=== PATIENT | male | born 1975 | race Caucasian/White ===

== ENCOUNTER 2021-08-25 17:05 | Inpatient (IN) | payer BC ==
[~2021-08-25] VITALS: Ht 172.7 cm; Wt 91.0 kg
[2021-08-25] MEDS ORDERED: morphine 10mg/ml inj. IM ONE (17:25)
[2021-08-25] MEDS ORDERED: ondansetron 4mg rapidly disintigrating tab PO ONE (17:25)
[2021-08-25] MEDS ORDERED: normal saline 1000ml 1,000 ML IV ONE ×2 (18:35→19:25)
[2021-08-25] MEDS ORDERED: morphine 4 MG/ML inj SYRINge IV ONE ×2 (18:35→19:25)
[2021-08-25 19:04] LABS: BASOPHILS % (AUTO) 0.1 % (0-1); EOSINOPHILS % (AUTO) 0.1 % (0-6); HEMATOCRIT 45.2 % (42.0-52.0); HEMOGLOBIN 15.8 g/dl (14.0-17.9); LYMPHOCYTES # (AUTO) 0.6 X10'3 (1.1-4.8); LYMPHOCYTES % (AUTO) 4.1 % (21-51); MEAN CORPUSCULAR HEMOGLOBIN 30.4 PG (27.0-31.0); MEAN CORPUSCULAR HGB CONC 34.9 g/dL (33.0-36.5); MEAN CORPUSCULAR VOLUME 87.2 FL (78-98); MEAN PLATELET VOLUME 6.1 FL (7.4-10.4); MONOCYTES # (AUTO) 0.8 X10'3 (0-0.9); MONOCYTES % (AUTO) 5.4 % (2-12); NEUTROPHILS # (AUTO) 13.2 X10'3 (1.8-7.7); NEUTROPHILS % (AUTO) 90.3 % (42-75); PLATELET COUNT 360 X10'3 (140-440); RED BLOOD COUNT 5.18 X10'6 (4.70-6.10); RED CELL DISTRIBUTION WIDTH 13.6 % (11.5-14.5); WHITE BLOOD COUNT 14.6 X10'3 (4.5-11.0)
[2021-08-25 19:21] LABS: ALANINE AMINOTRANSFERASE 37 U/L (12-78); ALBUMIN 4.3 G/DL (3.4-5.0); ALBUMIN/GLOBULIN RATIO 1.2 (1.1-1.5); ALKALINE PHOSPHATASE 61 IU/L (46-116); ANION GAP 12 (8-16); ASPARTATE AMINO TRANSFERASE 25 U/L (10-37); BILIRUBIN,TOTAL 0.6 MG/DL (0.1-1.0); BLOOD UREA NITROGEN 23 MG/DL (7-18); BUN/CREATININE RATIO 24.7 (5.4-32.0); CALCIUM 8.7 MG/DL (8.5-10.1); CHLORIDE 101 MMOL/L (99-107); CREATININE 0.93 MG/DL (0.60-1.10); GLUCOSE 115 MG/DL (70-104); POTASSIUM 3.4 MMOL/L (3.5-5.1); SODIUM 140 MMOL/L (135-145); TOTAL PROTEIN 7.8 G/DL (6.4-8.2); eGFR 87 ML/MIN
[2021-08-25] MEDS ORDERED: ondansetron/PF 4mg/2ml inj IV ONE (19:25)
[2021-08-25 19:46] LABS: APTT 25 SECONDS (22-32)
[2021-08-25] MEDS ORDERED: magnesium hydroxide 30ml (MOM) UD suspension PO PRN (19:50)
[2021-08-25] MEDS ORDERED: ondansetron/PF 4mg/2ml inj IV PRN (19:50)
[2021-08-25] MEDS ORDERED: diphenhydrAMINE 50 mg/ml inj IV PRN (19:50)
[2021-08-25] MEDS ORDERED: bisacodyl 10mg suppository rectal RC PRN (19:50)
[2021-08-25] MEDS ORDERED: diphenhydrAMINE 25mg capsule PO PRN (19:50)
[2021-08-25] MEDS ORDERED: morphine 2 MG/ML inj. syringe IV PRN ×2 (19:50)
[2021-08-25] MEDS ORDERED: acetaminophen 650mg rectal suppository RC PRN (19:50)
[2021-08-25] MEDS ORDERED: mag hydrox/Alum hydrox/simeth 30ml oral suspension PO PRN (19:50)
[2021-08-25] MEDS ORDERED: acetaminophen 325mg tablet PO PRN (19:50)
[2021-08-25] MEDS ORDERED: ondansetron 4mg rapidly disintigrating tab PO PRN (19:50)
[2021-08-25] MEDS ORDERED: HYDROcodone/acetaminophen 5mg/325mg tablet PO PRN (19:50)
[2021-08-25] MEDS ORDERED: magnesium Cl slow-release 64mg tablet PO PRN (19:55)
[2021-08-25] MEDS ORDERED: magnesium 4gm in 100ml NS 100 ML IV PRN (19:55)
[2021-08-25] MEDS ORDERED: magnesium 2GM in 50ml NS 50 ML IV PRN (19:55)
[2021-08-25] MEDS ORDERED: potassium CL 10mEq/100ml bag 100 ML IV PRN (19:55)
[2021-08-25] MEDS: K and/or MAG REPLACEMENT MC SCH (20:00)
[2021-08-25 20:15] LABS: HEMOGLOBIN A1C 5.4 % (4.5-6.2)
[2021-08-25] MEDS ORDERED: temazepam 15mg capsule PO PRN (21:00)
[2021-08-25] MEDS: heparin, porcine 5000 units/ml vial SQ SCH (21:24)
[2021-08-25] MEDS: docusate sod 100mg capsule PO SCH (21:24)
[2021-08-25] MEDS: potassium Cl 20 mEq SR tablet PO PRN (21:25)
[2021-08-25] MEDS: dextrose 5%-1/2 normal saline 1,000 ML IV SCH (21:25)
[2021-08-25 23:05] VITALS: BP 165/97
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
[2021-08-25] MEDS: HYDROmorphone inj. 0.5 MG/0.5 ML DISP.SYRIN IV PRN (23:25)
[2021-08-26] VITALS (19 sets, daily range): BP systolic 127–160; BP diastolic 70–99
[2021-08-26] MEDS: HYDROcodone/acetaminophen 10/325mg tab PO PRN ×2 (01:24→05:26)
[2021-08-26] MEDS: potassium Cl 20 mEq SR tablet PO PRN (01:24)
[2021-08-26] MEDS ORDERED: NO HOME MEDS (03:26)
[2021-08-26] MEDS: HYDROmorphone inj. 0.5 MG/0.5 ML DISP.SYRIN IV PRN ×2 (03:26→09:22)
[2021-08-26] MEDS: dextrose 5%-1/2 normal saline 1,000 ML IV SCH ×3 (05:22→20:42)
--- NOTE | 2021-08-26 06:15 | NUR ---
Patient in room [facility]. I have received report from Le Lujan RN and had the opportunity to ask questions and assume patient care.
--- NOTE | 2021-08-26 06:30 | NUR ---
Problems reprioritized. Patient report given, questions answered & plan of care reviewed with LIAN GUERRERO.
[2021-08-26 06:42] LABS: BASOPHILS % (AUTO) 0.2 % (0-1); EOSINOPHILS % (AUTO) 0.4 % (0-6); HEMATOCRIT 42.2 % (42.0-52.0); HEMOGLOBIN 14.9 g/dl (14.0-17.9); LYMPHOCYTES # (AUTO) 0.9 X10'3 (1.1-4.8); LYMPHOCYTES % (AUTO) 11.7 % (21-51); MEAN CORPUSCULAR HEMOGLOBIN 31.2 PG (27.0-31.0); MEAN CORPUSCULAR HGB CONC 35.4 g/dL (33.0-36.5); MEAN PLATELET VOLUME 6.2 FL (7.4-10.4); MONOCYTES # (AUTO) 0.5 X10'3 (0-0.9); MONOCYTES % (AUTO) 6.1 % (2-12); NEUTROPHILS # (AUTO) 6.2 X10'3 (1.8-7.7); NEUTROPHILS % (AUTO) 81.6 % (42-75); PLATELET COUNT 333 X10'3 (140-440); RED BLOOD COUNT 4.79 X10'6 (4.70-6.10); RED CELL DISTRIBUTION WIDTH 13.8 % (11.5-14.5); WHITE BLOOD COUNT 7.6 X10'3 (4.5-11.0)
[2021-08-26 07:14] LABS: ALANINE AMINOTRANSFERASE 33 U/L (12-78); ALBUMIN 3.7 G/DL (3.4-5.0); ALBUMIN/GLOBULIN RATIO 1.1 (1.1-1.5); ALKALINE PHOSPHATASE 58 IU/L (46-116); ANION GAP 12 (8-16); ASPARTATE AMINO TRANSFERASE 16 U/L (10-37); BILIRUBIN,TOTAL 1.1 MG/DL (0.1-1.0); BLOOD UREA NITROGEN 17 MG/DL (7-18); BUN/CREATININE RATIO 17.2 (5.4-32.0); CALCIUM 8.4 MG/DL (8.5-10.1); CHLORIDE 102 MMOL/L (99-107); CREATININE 0.99 MG/DL (0.60-1.10); GLUCOSE 124 MG/DL (70-104); MAGNESIUM 2.4 MG/DL (1.5-2.4); POTASSIUM 3.9 MMOL/L (3.5-5.1); SODIUM 140 MMOL/L (135-145); TOTAL CARBON DIOXIDE 25.9 MMOL/L (24-32); TOTAL PROTEIN 7.2 G/DL (6.4-8.2); eGFR 81 ML/MIN
[2021-08-26] MEDS: heparin, porcine 5000 units/ml vial SQ SCH ×2 (07:34→20:42)
[2021-08-26] MEDS: pantoprazole 40MG/NS 100ML BAG 100 ML IV SCH (07:39)
[2021-08-26] MEDS: docusate sod 100mg capsule PO SCH ×2 (07:40→20:42)
[2021-08-26] MEDS: K and/or MAG REPLACEMENT MC SCH ×2 (08:00→20:00)
[2021-08-26] MEDS ORDERED: pneumococcal 23-VAL P-sac vacc 25 mcg/0.5ml vial IMVAC ONE (10:00)
[2021-08-26] MEDS ORDERED: oxyCODONE/APAP 10/325mg tablet PO PRN (10:55)
[2021-08-26] MEDS: oxyCODONE/APAP 10/325mg tablet PO PRN ×2 (12:02→22:43)
--- NOTE | 2021-08-26 14:49 | NUR ---
Problems reprioritized. Patient report given, questions answered & plan of care reviewed with Brandon GUERREROorgan recovery coordinator.
[2021-08-26] MEDS ORDERED: BUPIVAcaine 0.5% inj/PF 30 ML ONE (14:52)
--- NOTE | 2021-08-26 15:30 | NUR ---
Charting by Lorenza COSTA reviewed by Jacque Keith RN
[2021-08-26] MEDS ORDERED: morphine 2 MG/ML inj. syringe IV PRN (15:35)
[2021-08-26] MEDS ORDERED: ketorolac trometh. 30mg/ml inj. IV ONE (15:35)
[2021-08-26] MEDS ORDERED: morphine 4 MG/ML inj SYRINge IV PRN (15:35)
[2021-08-26] MEDS ORDERED: ondansetron/PF 4mg/2ml inj IV PRN (15:35)
[2021-08-26] MEDS ORDERED: proCHLORperazine 10 MG/2 ml inj IV PRN (15:35)
[2021-08-26] MEDS ORDERED: hydrALAZINE 20mg/ml inj. IV PRN (15:35)
[2021-08-26] MEDS ORDERED: ringers solution, lacted 1,000 ML IV SCH (15:35)
[2021-08-26] MEDS ORDERED: acetaminophen 1,000mg/100ml IV 100 ML IV PRN (15:35)
[2021-08-26] MEDS ORDERED: labetalol 20mg/4ml (5mg/ml) syringe IV PRN (15:35)
[2021-08-26] MEDS ORDERED: meperidine/PF 25mg/ml syringe IV PRN ×3 (15:35)
[2021-08-26] MEDS ORDERED: midazolam 1 mg/ML 2ml injection ONE (15:59)
[2021-08-26] MEDS ORDERED: FENTANYL CITRATE/PF 50 MCG/1 ML VIAL ONE (16:19)
[2021-08-26] MEDS ORDERED: propofol inj 20 ML IV ONE (16:20)
[2021-08-26] MEDS ORDERED: dexamethasone sod phosphate 4mg/ml inj. ONE (16:20)
[2021-08-26] MEDS ORDERED: ceFAZolin 1000mg inj ONE ×2 (16:20)
[2021-08-26] MEDS ORDERED: ondansetron/PF 4mg/2ml inj ONE (16:20)
[2021-08-26] MEDS ORDERED: LIDOcaine 2% (20mg/ml) 5ml vial ONE (16:20)
[2021-08-26] MEDS ORDERED: vancomycin 1,000mg inj ONE (17:12)
[2021-08-26] MEDS ORDERED: morphine 4 MG/ML inj SYRINge ONE ×2 (17:26→18:39)
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
--- NOTE | 2021-08-26 18:04 | NUR ---
Patient in room [facility]. I have received report from Martina GUERREROdonkey doctor and had the opportunity to ask questions and assume patient care.
--- NOTE | 2021-08-26 18:15 | NUR ---
Problems reprioritized. Patient report given, questions answered & plan of care reviewed with Le Lujan RN.
--- NOTE | 2021-08-26 18:30 | NUR ---
I have received report from LIAN GUERRERO and had the opportunity to ask questions and assume patient care. PATIENT STILL IN RECOVERY ROOM AT THIS TIME.
--- NOTE | 2021-08-26 18:42 | NUR ---
4 MG MORPHINE GIVEN PER MD ORDERS THAT WE PREMATURELY REMOVED FROM MEDICATION LIST BY RX. Addendum: 08/26/21 at 1843 by Martina Tabares RN Amended: Links added.
--- NOTE | 2021-08-26 19:03 | NUR ---
Report called to receiving nurse. Transferred via BED, NO Belongings. RECEIVING RN AT [facility] TO RECEIVE PT. BLL, CALL LIGHT GIVEN, SIDE RAILS UP X 2. Special Issues communicated to receiving nurse. YES. Addendum: 08/26/21 at 1911 by Martina Tabares RN Amended: Links added.
--- NOTE | 2021-08-26 19:05 | NUR ---
PATIENT BACK TO ROOM 359A FROM RECOVERY ROOM AFTER ORIF WAS DONE BY DR. CORTES. PLACED COMFORTABLE IN BED. VITAL SIGNS MONITORED.
[2021-08-27] VITALS: BP 143/87
[2021-08-27] MEDS: ceFAZolin/D5W- 1GM premix 50 ML IV SCH ×2 (00:30→09:15)
[2021-08-27] MEDS: dextrose 5%-1/2 normal saline 1,000 ML IV SCH (05:44)
[2021-08-27 06:14] LABS: BASOPHILS % (AUTO) 0 % (0-1); EOSINOPHILS % (AUTO) 0 % (0-6); HEMATOCRIT 41.2 % (42.0-52.0); HEMOGLOBIN 14.5 g/dl (14.0-17.9); LYMPHOCYTES # (AUTO) 0.5 X10'3 (1.1-4.8); LYMPHOCYTES % (AUTO) 5.8 % (21-51); MEAN CORPUSCULAR HEMOGLOBIN 31.4 PG (27.0-31.0); MEAN CORPUSCULAR HGB CONC 35.2 g/dL (33.0-36.5); MEAN CORPUSCULAR VOLUME 89.1 FL (78-98); MEAN PLATELET VOLUME 6.4 FL (7.4-10.4); MONOCYTES # (AUTO) 0.4 X10'3 (0-0.9); MONOCYTES % (AUTO) 4.4 % (2-12); NEUTROPHILS # (AUTO) 7.6 X10'3 (1.8-7.7); NEUTROPHILS % (AUTO) 89.8 % (42-75); PLATELET COUNT 325 X10'3 (140-440); RED BLOOD COUNT 4.62 X10'6 (4.70-6.10); RED CELL DISTRIBUTION WIDTH 13.3 % (11.5-14.5); WHITE BLOOD COUNT 8.5 X10'3 (4.5-11.0)
--- NOTE | 2021-08-27 06:25 | NUR ---
Problems reprioritized. Patient report given, questions answered & plan of care reviewed with LIAN GUERRERO.
[2021-08-27 06:38] LABS: ALANINE AMINOTRANSFERASE 27 U/L (12-78); ALBUMIN 3.2 G/DL (3.4-5.0); ALBUMIN/GLOBULIN RATIO 0.7 (1.1-1.5); ALKALINE PHOSPHATASE 53 IU/L (46-116); ANION GAP 10 (8-16); ASPARTATE AMINO TRANSFERASE 24 U/L (10-37); BILIRUBIN,TOTAL 0.8 MG/DL (0.1-1.0); BLOOD UREA NITROGEN 17 MG/DL (7-18); BUN/CREATININE RATIO 16.3 (5.4-32.0); CALCIUM 8.6 MG/DL (8.5-10.1); CHLORIDE 102 MMOL/L (99-107); CREATININE 1.04 MG/DL (0.60-1.10); GLUCOSE 136 MG/DL (70-104); POTASSIUM 4.3 MMOL/L (3.5-5.1); SODIUM 139 MMOL/L (135-145); TOTAL CARBON DIOXIDE 27.2 MMOL/L (24-32); TOTAL PROTEIN 7.7 G/DL (6.4-8.2); eGFR 77 ML/MIN
--- NOTE | 2021-08-27 06:44 | NUR ---
Patient in room [facility]. I have received report from Le Lujan Rn and had the opportunity to ask questions and assume patient care.
[2021-08-27 07:18] LABS: MAGNESIUM 2.3 MG/DL (1.5-2.4)
[2021-08-27 07:57] VITALS: BP 111/68
[2021-08-27] MEDS: K and/or MAG REPLACEMENT MC SCH ×2 (08:00→19:59)
[2021-08-27] MEDS: docusate sod 100mg capsule PO SCH ×2 (08:13→19:55)
[2021-08-27] MEDS: heparin, porcine 5000 units/ml vial SQ SCH (08:13)
[2021-08-27] MEDS: pantoprazole 40MG/NS 100ML BAG 100 ML IV SCH (08:50)
[2021-08-27] MEDS: oxyCODONE/APAP 10/325mg tablet PO PRN (10:01)
[2021-08-27] MEDS: acetaminophen 325mg tablet PO PRN (14:07)
--- NOTE | 2021-08-27 15:08 | NUR ---
PAGER ID: [phone] MESSAGE: Tucker Bundy#[id number]- Pt would like different pain meds. Percocet works well but wants to get them q4hr instead. can we give a 1x dose of Toradol 15mg? please and thank you. Irlanda [phone]
[2021-08-27] MEDS ORDERED: oxyCODONE/APAP 10/325mg tablet PO PRN (16:40)
[2021-08-27] MEDS ORDERED: ketorolac tromethamine 15mg/ml inj. IM ONE (17:15)
[2021-08-27] MEDS ORDERED: ketorolac trometh. 30mg/ml inj. IV ONE (17:25)
[2021-08-27 18:00] VITALS: BP 123/71
--- NOTE | 2021-08-27 18:16 | NUR ---
Problems reprioritized. Patient report given, questions answered & plan of care reviewed with Jone GUERRERO.
--- NOTE | 2021-08-27 18:39 | NUR ---
Patient in room [facility]. I have received report from Irlanda GUERRERO ,and had the opportunity to ask questions and assume patient care.
[2021-08-27] MEDS: ketorolac trometh. 30mg/ml inj. IV SCH ×2 (18:46→21:28)
--- NOTE | 2021-08-27 19:20 | NUR ---
Received report from YOLANDA Fournier
[2021-08-27] MEDS: enoxaparin 40mg/0.4ml syringe SUBCUT SCH (19:55)
[2021-08-28] VITALS: BP 116/77
[2021-08-28] MEDS: ketorolac trometh. 30mg/ml inj. IV SCH ×4 (02:47→20:05)
--- NOTE | 2021-08-28 06:32 | NUR ---
Problems reprioritized. Patient report given, questions answered & plan of care reviewed with Amanda flood.
--- NOTE | 2021-08-28 06:38 | NUR ---
I agree with Jeri ROY students documentation, assessments and report given to on coming nurse
[2021-08-28 06:43] LABS: BASOPHILS % (AUTO) 0.3 % (0-1); EOSINOPHILS % (AUTO) 0.8 % (0-6); HEMATOCRIT 39.5 % (42.0-52.0); HEMOGLOBIN 13.7 g/dl (14.0-17.9); LYMPHOCYTES # (AUTO) 1.1 X10'3 (1.1-4.8); LYMPHOCYTES % (AUTO) 19.1 % (21-51); MEAN CORPUSCULAR HEMOGLOBIN 30.9 PG (27.0-31.0); MEAN CORPUSCULAR HGB CONC 34.8 g/dL (33.0-36.5); MEAN CORPUSCULAR VOLUME 88.7 FL (78-98); MEAN PLATELET VOLUME 6.4 FL (7.4-10.4); MONOCYTES # (AUTO) 0.4 X10'3 (0-0.9); MONOCYTES % (AUTO) 6.6 % (2-12); NEUTROPHILS # (AUTO) 4.4 X10'3 (1.8-7.7); NEUTROPHILS % (AUTO) 73.2 % (42-75); PLATELET COUNT 302 X10'3 (140-440); RED BLOOD COUNT 4.45 X10'6 (4.70-6.10); RED CELL DISTRIBUTION WIDTH 13.7 % (11.5-14.5)
[2021-08-28 06:46] LABS: ALANINE AMINOTRANSFERASE 25 U/L (12-78); ALBUMIN 3.1 G/DL (3.4-5.0); ALBUMIN/GLOBULIN RATIO 0.9 (1.1-1.5); ALKALINE PHOSPHATASE 48 IU/L (46-116); ANION GAP 12 (8-16); ASPARTATE AMINO TRANSFERASE 31 U/L (10-37); BILIRUBIN,TOTAL 0.6 MG/DL (0.1-1.0); BLOOD UREA NITROGEN 22 MG/DL (7-18); BUN/CREATININE RATIO 21.8 (5.4-32.0); CALCIUM 8.5 MG/DL (8.5-10.1); CHLORIDE 104 MMOL/L (99-107); CREATININE 1.01 MG/DL (0.60-1.10); GLUCOSE 102 MG/DL (70-104); MAGNESIUM 2.3 MG/DL (1.5-2.4); POTASSIUM 3.9 MMOL/L (3.5-5.1); SODIUM 144 MMOL/L (135-145); TOTAL CARBON DIOXIDE 28.5 MMOL/L (24-32); TOTAL PROTEIN 6.7 G/DL (6.4-8.2); eGFR 80 ML/MIN
[2021-08-28 07:00] VITALS: BP 124/78
[2021-08-28] MEDS: K and/or MAG REPLACEMENT MC SCH ×2 (08:00→18:30)
--- NOTE | 2021-08-28 08:09 | NUR ---
Patient in room [facility]. I have received report from Jose Manuel GUERRERO and had the opportunity to ask questions and assume patient care.
[2021-08-28] MEDS: docusate sod 100mg capsule PO SCH ×2 (08:36→20:04)
[2021-08-28] MEDS: pantoprazole 40MG/NS 100ML BAG 100 ML IV SCH (08:38)
[2021-08-28 11:00] VITALS: BP 136/83
[2021-08-28] MEDS ORDERED: pneumococcal 23-VAL P-sac vacc 25 mcg/0.5ml vial IMVAC ONE (11:00)
[2021-08-28] MEDS: oxyCODONE/APAP 10/325mg tablet PO PRN ×2 (11:19→21:27)
--- NOTE | 2021-08-28 17:54 | NUR ---
Student documentation: I have reviewed and all interventions, assessments performed and documented by Elisabet ROMERO. Student Medication Administration: For all medication-pass' in the time frame of 0395-5385, all medication were reviewed, dispensed, administered and documented per hospital policy by Elisabet ROMERO.
--- NOTE | 2021-08-28 18:07 | NUR ---
Problems reprioritized. Patient report given, questions answered & plan of care reviewed with Geovanna GUERRERO.
[2021-08-28 20:00] VITALS: BP 137/78
[2021-08-28] MEDS: enoxaparin 40mg/0.4ml syringe SUBCUT SCH (20:05)
[2021-08-29] VITALS: BP 124/69
[2021-08-29] MEDS: ketorolac trometh. 30mg/ml inj. IV SCH ×4 (02:34→20:15)
[2021-08-29] MEDS: oxyCODONE/APAP 10/325mg tablet PO PRN ×2 (05:51→22:47)
--- NOTE | 2021-08-29 06:21 | NUR ---
Problems reprioritized. Patient report given, questions answered & plan of care reviewed with YOLANDA East.
[2021-08-29 06:29] LABS: BASOPHILS % (AUTO) 0.8 % (0-1); EOSINOPHILS # (AUTO) 0.1 X10'3 (0-0.9); EOSINOPHILS % (AUTO) 2.4 % (0-6); HEMATOCRIT 40.5 % (42.0-52.0); HEMOGLOBIN 14.3 g/dl (14.0-17.9); LYMPHOCYTES # (AUTO) 1.3 X10'3 (1.1-4.8); LYMPHOCYTES % (AUTO) 26.7 % (21-51); MEAN CORPUSCULAR HEMOGLOBIN 31.3 PG (27.0-31.0); MEAN CORPUSCULAR HGB CONC 35.2 g/dL (33.0-36.5); MEAN CORPUSCULAR VOLUME 88.9 FL (78-98); MEAN PLATELET VOLUME 6.4 FL (7.4-10.4); MONOCYTES # (AUTO) 0.3 X10'3 (0-0.9); MONOCYTES % (AUTO) 6.4 % (2-12); NEUTROPHILS # (AUTO) 3.1 X10'3 (1.8-7.7); NEUTROPHILS % (AUTO) 63.7 % (42-75); PLATELET COUNT 304 X10'3 (140-440); RED BLOOD COUNT 4.56 X10'6 (4.70-6.10); RED CELL DISTRIBUTION WIDTH 13.4 % (11.5-14.5); WHITE BLOOD COUNT 4.8 X10'3 (4.5-11.0)
[2021-08-29 06:57] LABS: ALANINE AMINOTRANSFERASE 29 U/L (12-78); ALBUMIN 3.1 G/DL (3.4-5.0); ALBUMIN/GLOBULIN RATIO 0.8 (1.1-1.5); ALKALINE PHOSPHATASE 50 IU/L (46-116); ANION GAP 11 (8-16); ASPARTATE AMINO TRANSFERASE 31 U/L (10-37); BILIRUBIN,TOTAL 0.6 MG/DL (0.1-1.0); BLOOD UREA NITROGEN 22 MG/DL (7-18); BUN/CREATININE RATIO 23.4 (5.4-32.0); CHLORIDE 105 MMOL/L (99-107); CREATININE 0.94 MG/DL (0.60-1.10); GLUCOSE 103 MG/DL (70-104); MAGNESIUM 2.3 MG/DL (1.5-2.4); POTASSIUM 4.1 MMOL/L (3.5-5.1); SODIUM 142 MMOL/L (135-145); TOTAL CARBON DIOXIDE 26.4 MMOL/L (24-32); TOTAL PROTEIN 6.9 G/DL (6.4-8.2); eGFR 86 ML/MIN
[2021-08-29 07:00] VITALS: BP 117/81
[2021-08-29] MEDS: K and/or MAG REPLACEMENT MC SCH ×2 (07:47→20:00)
[2021-08-29] MEDS: pantoprazole 40MG/NS 100ML BAG 100 ML IV SCH (08:04)
[2021-08-29] MEDS: docusate sod 100mg capsule PO SCH ×2 (08:05→20:15)
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
[2021-08-29 11:00] VITALS: BP 130/85
[2021-08-29 18:00] VITALS: BP 134/91
[2021-08-29] MEDS: enoxaparin 40mg/0.4ml syringe SUBCUT SCH (20:16)
[2021-08-30] VITALS: BP 114/76
[2021-08-30] MEDS: ketorolac trometh. 30mg/ml inj. IV SCH ×2 (01:53→07:23)
[2021-08-30 05:31] LABS: BASOPHILS % (AUTO) 0.7 % (0-1); EOSINOPHILS # (AUTO) 0.1 X10'3 (0-0.9); HEMATOCRIT 41.8 % (42.0-52.0); HEMOGLOBIN 14.5 g/dl (14.0-17.9); LYMPHOCYTES # (AUTO) 1.3 X10'3 (1.1-4.8); LYMPHOCYTES % (AUTO) 27.9 % (21-51); MEAN CORPUSCULAR HEMOGLOBIN 30.5 PG (27.0-31.0); MEAN CORPUSCULAR HGB CONC 34.6 g/dL (33.0-36.5); MEAN PLATELET VOLUME 6.1 FL (7.4-10.4); MONOCYTES # (AUTO) 0.3 X10'3 (0-0.9); MONOCYTES % (AUTO) 6.4 % (2-12); NEUTROPHILS # (AUTO) 2.9 X10'3 (1.8-7.7); PLATELET COUNT 346 X10'3 (140-440); RED BLOOD COUNT 4.75 X10'6 (4.70-6.10); RED CELL DISTRIBUTION WIDTH 13.5 % (11.5-14.5); WHITE BLOOD COUNT 4.7 X10'3 (4.5-11.0)
[2021-08-30 05:52] LABS: ALANINE AMINOTRANSFERASE 35 U/L (12-78); ALBUMIN 3.2 G/DL (3.4-5.0); ALBUMIN/GLOBULIN RATIO 0.9 (1.1-1.5); ALKALINE PHOSPHATASE 50 IU/L (46-116); ANION GAP 9 (8-16); ASPARTATE AMINO TRANSFERASE 36 U/L (10-37); BILIRUBIN,TOTAL 0.7 MG/DL (0.1-1.0); BLOOD UREA NITROGEN 21 MG/DL (7-18); BUN/CREATININE RATIO 20.6 (5.4-32.0); CALCIUM 9.2 MG/DL (8.5-10.1); CHLORIDE 104 MMOL/L (99-107); CREATININE 1.02 MG/DL (0.60-1.10); GLUCOSE 104 MG/DL (70-104); POTASSIUM 4.3 MMOL/L (3.5-5.1); SODIUM 142 MMOL/L (135-145); TOTAL CARBON DIOXIDE 28.6 MMOL/L (24-32); TOTAL PROTEIN 6.9 G/DL (6.4-8.2); eGFR 79 ML/MIN
--- NOTE | 2021-08-30 06:31 | NUR ---
Problems reprioritized. Patient report given , questions answered & plan of care reviewed with YOLANDA Mandujano, for continuation of care.
--- NOTE | 2021-08-30 06:39 | NUR ---
Patient in room [facility]. I have received report from Jose GUERRERO and had the opportunity to ask questions and assume patient care.
[2021-08-30] MEDS: pantoprazole 40MG/NS 100ML BAG 100 ML IV SCH (07:24)
[2021-08-30] MEDS: docusate sod 100mg capsule PO SCH ×2 (07:24→19:39)
[2021-08-30 07:34] VITALS: BP 144/88
[2021-08-30] MEDS: K and/or MAG REPLACEMENT MC SCH ×2 (08:00→18:45)
--- NOTE | 2021-08-30 09:32 | NUR ---
Paged social service agency director regarding help with disablity
[2021-08-30 11:00] VITALS: BP 141/71
[2021-08-30] MEDS ORDERED: pneumococcal 23-VAL P-sac vacc 25 mcg/0.5ml vial IMVAC ONE (12:45)
--- NOTE | 2021-08-30 13:14 | NUR ---
Assiated patient to walk to BR using crutches. patient tolerated procedure. Worked with PT see note. Toradol given for pain with good effect. sitting comfortably in chair at this time.
[2021-08-30] MEDS: acetaminophen 325mg tablet PO PRN (18:00)
--- NOTE | 2021-08-30 18:38 | NUR ---
Problems reprioritized. Patient report given, questions answered & plan of care reviewed with Solo GUERRERO.
[2021-08-30] MEDS: enoxaparin 40mg/0.4ml syringe SUBCUT SCH (19:53)
[2021-08-30] MEDS: oxyCODONE/APAP 10/325mg tablet PO PRN (19:54)
[2021-08-31] VITALS: BP 152/95
[2021-08-31] MEDS: oxyCODONE/APAP 10/325mg tablet PO PRN ×2 (02:20→14:02)
--- NOTE | 2021-08-31 06:31 | NUR ---
Patient in room [facility]. I have received report from Little GUERRERO and had the opportunity to ask questions and assume patient care.
[2021-08-31 07:54] VITALS: BP 127/76
[2021-08-31] MEDS: docusate sod 100mg capsule PO SCH (08:00)
[2021-08-31] MEDS: K and/or MAG REPLACEMENT MC SCH (08:00)
[2021-08-31] MEDS: pantoprazole 40MG/NS 100ML BAG 100 ML IV SCH (08:15)
[2021-08-31] MEDS: acetaminophen 325mg tablet PO PRN (09:02)
[2021-08-31] MEDS ORDERED: OXYC1TAB17 PO (10:16)
[2021-08-31] MEDS ORDERED: DOCU100C40 PO (10:16)
[2021-08-31 11:00] VITALS: BP 126/79
[2021-08-31] MEDS ORDERED: APIX5TAB3 PO (13:13)
[2021-08-31] MEDS ORDERED: ASPI-500 PO (15:05)
--- NOTE | 2021-08-31 15:28 | NUR ---
patient given percocet x1 for pain and tylenol x1 for pain both with effect. Worked with PT able to ambulate and use stairs with crutches see PT note. Seen by DR Dempsey and Kathryn burk [employer] EX[employer]ER, is for DC. All DC instructions given to patient . Dressing changed to right hip and supplies given to patient. patient is stable for DC awaiting ride.
--- NOTE | 2021-08-31 17:23 | NUR ---
patient DC via private car to home with friend [id number]
== END 2021-08-31 17:01 | disposition home health service (06) | DRG 482 ==
LOC: ER 17:06 → ED HOLD 19:53 → SUR 3N 22:45
PROVIDERS: ADMIT Family Medicine; ATTEND Internal Medicine
PROC: 0QS604Z Reposition Right Upper Femur with Internal Fixation Device, Open Approach (ICD-10-PCS; principal; 2021-08-26 15:47)
DX: S72.001A Fracture of unspecified part of neck of right femur, initial encounter for closed fracture (principal); E78.5 Hyperlipidemia, unspecified; E87.6 Hypokalemia; Z60.2 Problems related to living alone; Z20.822 Contact with and (suspected) exposure to COVID-19; I10 Essential (primary) hypertension; S50.02XA Contusion of left elbow, initial encounter; S50.12XA Contusion of left forearm, initial encounter; Z79.01 Long term (current) use of anticoagulants; Z79.82 Long term (current) use of aspirin; Z28.21 Immunization not carried out because of patient refusal; V29.9XXA Motorcycle rider (driver) (passenger) injured in unspecified traffic accident, initial encounter; Y93.55 Activity, bike riding; Y92.488 Other paved roadways as the place of occurrence of the external cause; Y99.8 Other external cause status
CPT/HCPCS: 36415; 71045; 72192; 73080; 73090; 73502; 73503; 76000; 80053; 82948; 83036; 83735; 83880; 84100; 85025; 85610; 85730; 86885; 86900; 86901; 87081; 87635; 93005; 96361; 96372; 96374; 97110; 97116; 97162; 97530; 99285; C9113; G0378; J0690; J1100; J1170; J1644; J1650; J1885; J2250; J2270; J2274; J2405; J2704; J3010; J3370; J3490; J7030; J7042; S0020